=== PATIENT | male | born 2000 | race Caucasian/White ===

== ENCOUNTER 2023-02-02 22:50 | Outpatient (CLI) | payer SELFPAY | END 2023-02-02 22:51 | disposition EMS.NT | LOC: EMS 22:50 | DX: S80.212A Abrasion, left knee, initial encounter (principal); X58.XXXA Exposure to other specified factors, initial encounter ==

== ENCOUNTER 2023-06-26 08:53 | Emergency (ER) | payer MEDICAID, OTHER ==
[2023-06-26 09:21] VITALS: O2SAT 96
--- NOTE | 2023-06-26 09:27 | ED Physician Documentation ---
PD HPI OPHTHO - Stated complaint Stated Complaint: LT EYE SWELLING - Chief complaint Chief Complaint: Heent - History obtained from History obtained from: Patient - Additional information Additional information: 2 days swelling and drainage from the left eye, no visual deficit. He wears glasses but not contacts. He has not been wearing his glasses lately. There is a foreign body sensation but no exposure to foreign body. PD PAST MEDICAL HISTORY - Past Medical History Past Medical History: No - Past Surgical History Past Surgical History: No - Present Medications Home Medications: Ambulatory Orders Medication Instructions Recorded Confirmed Erythromycin Base [Erythromycin 1 appful OP 5XD 7 Days #1 gm 06/26/23 Ophthalmic Ointment] - Allergies Allergies/Adverse Reactions: Allergies Allergy/AdvReac Type Severity Reaction Status Date / Time Penicillins Allergy Rash Verified 06/26/23 09:14 - Social History Does the pt smoke?: No Smoking Status: Never smoker Does the pt drink ETOH?: Yes Does the pt have substance abuse?: Yes Substance Use and Type: Marijuana - Immunizations Immunizations are current?: Yes PD ED PE NORMAL - Vitals Vital signs reviewed: Yes - General General: Alert and oriented X 3, No acute distress - HEENT HEENT: Other (Conjunctivitis of the left eye, extraocular movements normal, soft globes, no fluorescein uptake) - Neck Neck: Supple, no meningeal sign, No bony TTP - Neuro Neuro: Alert and oriented X 3, Normal speech Results - Vitals Vitals: Vital Signs - 24 hr 06/26/23 09:10 Temperature 36.6 C Heart Rate 65 Respiratory 14 Rate O2 Saturation 96 Oxygen O2 Source Room air Departure - Departure Disposition: 01 Home, Self Care Clinical Impression: Conjunctivitis, left eye Qualifiers: Conjunctivitis type: acute Acute conjunctivitis type: unspecified Qualified Code(s): H10.32 - Unspecified acute conjunctivitis, left eye Condition: Good Record reviewed to determine appropriate education?: Yes Instructions: ED Conjunctivitis Nonspecific Follow-Up: Antolin Phillip MD [Provider Admit Priv/Credential] - Prescriptions: Erythromycin Base [Erythromycin Ophthalmic Ointment] 1 appful OP 5XD 7 Days #1 gm Comments: Follow-up with the newscast producer on Friday if not better, return for new or worsening symptoms.
[2023-06-26 09:50] VITALS: BP 127/84
== END 2023-06-26 09:43 | disposition home or self-care (01) ==
LOC: ED 08:53
DX: H10.32 Unspecified acute conjunctivitis, left eye (principal)
CPT/HCPCS: 99282; 99283

== ENCOUNTER 2023-07-17 09:02 | Emergency (ER) | payer MEDICAID | END 2023-07-17 09:40 | disposition left against medical advice (07) | LOC: ED 09:02 | DX: Z53.21 Procedure and treatment not carried out due to patient leaving prior to being seen by health care provider (principal) ==

== ENCOUNTER 2023-07-17 14:37 | Emergency (ER) | payer MEDICAID ==
[2023-07-17 14:52] VITALS: BP 140/80; O2SAT 96
--- NOTE | 2023-07-17 15:34 | XRAY Report ---
PROCEDURE: Hand 3 View RT INDICATIONS: Trauma TECHNIQUE: 3 views of the hand(s) acquired. COMPARISON: None. FINDINGS: Bones: There is a mildly displaced head of right fifth metacarpal fracture with volar angulation of the distal fracture fragment. No suspicious osseous lesions. Other visualized osseous structures appe ar intact. Soft tissues: No suspicious soft tissue calcifications or masses. Soft tissue swelling of the righ t hand. IMPRESSION: Mildly displaced head of right fifth metacarpal fracture. Reviewed by: Mohit Juan MD on 07/17/2023 3:33 PM PST Approved by: Mohit Juan MD on 07/17/2023 3:33 PM PST Station ID: [id number]
--- NOTE | 2023-07-17 16:53 | ED Physician Documentation ---
PD HPI UPPER EXT INJURY - Stated complaint Stated Complaint: SWOLLEN RT HAND - Chief complaint Chief Complaint: Trauma Ext - History obtained from History obtained from: Patient - Additonal information Additional information: Patient is a 23-year-old male presenting for evaluation of right hand pain after punching a wall last night while drinking. Denies injuries elsewhere. He is right-hand dominant. Reports the pain is not that bad today.Denies prior injuries to this extremity. Review of Systems Cardiac: denies: Chest pain / pressure Respiratory: denies: Dyspnea Musculoskeletal: reports: Extremity pain Neurologic: denies: Head injury PD PAST MEDICAL HISTORY - Past Medical History Past Medical History: No - Past Surgical History Past Surgical History: No - Present Medications Home Medications: Ambulatory Orders Medication Instructions Recorded Confirmed Erythromycin Base [Erythromycin 1 appful OP 5XD 7 Days #1 gm 06/26/23 Ophthalmic Ointment] - Allergies Allergies/Adverse Reactions: Allergies Allergy/AdvReac Type Severity Reaction Status Date / Time Penicillins Allergy Rash Verified 07/17/23 14:50 - Social History Does the pt smoke?: No Smoking Status: Never smoker Does the pt drink ETOH?: Yes Does the pt have substance abuse?: Yes - Immunizations Immunizations are current?: Yes PD ED PE NORMAL - General General: Alert and oriented X 3, No acute distress, Well developed/nourished - HEENT HEENT: Atraumatic - Cardiac Cardiac: Strong equal pulses - Respiratory Respiratory: No respiratory distress - Extremities Extremities: Other (Mild tenderness and swelling over fourth and fifth metacarpals, and makes a closed fist without any difficulty, normal sensation,) - Neuro Neuro: No sensory deficit, Normal speech Results - Vitals Vitals: Vital Signs - 24 hr 07/17/23 14:50 Temperature 36.5 C Heart Rate 100 Respiratory 18 Rate Blood Pressure 140/80 H O2 Saturation 96 Oxygen O2 Source Room air PD Medical Decision Making - ED course Complexity details: reviewed results, d/w patient ED course: Patient with right hand pain after punching a wall last night. Patient has tenderness over fifth metacarpal an x-ray was obtained which I reviewed and I see a fracture To the head of the right fifth metacarpal. No wounds to suggest open fracture. Neurovascularly intact. An ulnar gutter splint was applied. Patient counseled on need for close follow-up with orthopedic surgery as well as concerning symptoms to return for. Declines pain medications here. Departure - Departure Disposition: 01 Home, Self Care Clinical Impression: Closed fracture of 5th metacarpal Condition: Stable Instructions: ED Fx Hand Closed Follow-Up: [facility] [Provider Group] - Within 1 week Comments: You have a fracture in your right hand and we have placed a splint. Please follow-up with orthopedic surgery clinic. I would recommend calling tomorrow to get an appointment within the next week or so. Please keep your splint on and keep it clean and dry. Use acetaminophen or ibuprofen as needed for pain. Please elevate the hand to help with swelling. Return to the ER with any new or worsening symptoms. IMPRESSION: Mildly displaced head of right fifth metacarpal fracture. Forms: PCP List Discharge Date/Time: 07/17/23 16:57
== END 2023-07-17 16:57 | disposition home or self-care (01) ==
LOC: ED 14:37
DX: S62.306A Unspecified fracture of fifth metacarpal bone, right hand, initial encounter for closed fracture (principal); W22.8XXA Striking against or struck by other objects, initial encounter
CPT/HCPCS: 99283

== ENCOUNTER 2023-07-29 08:00 | Outpatient (CLI) | payer MEDICAID ==
--- NOTE | 2023-07-29 15:44 | XRAY Report ---
PROCEDURE: Hand 3 View RT INDICATIONS: RIGHT 5TH MC FRACTURE TECHNIQUE: 3 views of the hand(s) acquired. COMPARISON: None. FINDINGS: Bones: Slight bone remodeling of the fifth metacarpal neck fracture, which remains angulated. Soft tissues: No suspicious soft tissue calcifications or masses. IMPRESSION: Slight interval healing of the angulated fifth metacarpal shaft fracture. Reviewed by: Dakota Espinosa MD on 07/29/2023 3:43 PM PST Approved by: Dakota Espinosa MD on 07/29/2023 3:43 PM PST Station ID: [id number]
== END 2023-07-29 23:59 | disposition home or self-care (01) ==
LOC: DI.WOS 08:00
PROVIDERS: ATTEND Orthopaedic Surgery
DX: S62.326D Displaced fracture of shaft of fifth metacarpal bone, right hand, subsequent encounter for fracture with routine healing (principal)

== ENCOUNTER 2023-09-23 08:00 | Outpatient (CLI) | payer MEDICAID ==
--- NOTE | 2023-09-23 09:26 | XRAY Report ---
PROCEDURE: Hand 3 View RT INDICATIONS: RIGHT 5TH MC FRACTURE TECHNIQUE: 3 views of the hand(s) acquired. COMPARISON: X-ray right wrist dated 07/17/2023, 1-24. FINDINGS: Bones: Distal fifth metacarpal fracture is again seen with interval bone remodeling and callus forma tion. Mild adjacent soft tissue swelling is present. No acute fracture subluxation seen. Soft tissues: As above IMPRESSION: Expected remodeling and callus formation around the distal metacarpal fracture Reviewed by: Henrry Carty MD on 09/23/2023 9:24 AM PST Approved by: Henrry Carty MD on 09/23/2023 9:24 AM PST Station ID: [id number]
== END 2023-09-23 23:59 | disposition home or self-care (01) ==
LOC: DI.WOS 08:00
PROVIDERS: ATTEND Orthopaedic Surgery
DX: S62.336D Displaced fracture of neck of fifth metacarpal bone, right hand, subsequent encounter for fracture with routine healing (principal)